=== PATIENT | female | born 1940 | race Caucasian/White ===

== ENCOUNTER 2017-09-26 14:58 | Emergency (ER) | payer OTHER ==
[~2017-09-26] VITALS: Ht 157.5 cm; Wt 65.8 kg
[~2017-09-26 14:58] MED LIST: AMLO10 PO; LEVSOD50; METO100ER PO; Norco 5-325 Ta1 EACH PO; SULAR
[2017-09-26 15:19] LABS: BASOPHILS ABSOLUTE AUTO 0.05 K/mm3 (0.00-0.23); BASOPHILS PERCENT AUTO 1 % (0-2); EOSINOPHILS ABSOLUTE AUTO 0.18 K/mm3 (0.00-0.68); EOSINOPHILS PERCENT AUTO 2 % (0-6); Hematocrit 43.8 % (33.0-51.0); Hemoglobin 14.4 g/dL (11.5-16.0); IMMATURE GRAN ABSOLUTE AUTO 0.01 K/mm3 (0.00-0.10); IMMATURE GRAN PERCENT AUTO 0 % (0-1); LYMPHOCYTES ABSOLUTE AUTO 1.83 K/mm3 (0.84-5.20); LYMPHOCYTES PERCENT AUTO 25 % (21-46); MONOCYTES ABSOLUTE AUTO 0.57 K/mm3 (0.16-1.47); MONOCYTES PERCENT AUTO 8 % (4-13); Mean Corpuscular HGB Conc 32.9 g/dL (31.5-36.5); Mean Corpuscular Volume 91 fL (80-100); Mean Platelet Volume 10.5 fL (9.1-12.4); NEUTROPHILS PERCENT AUTO 65 % (41-73); Platelet Count 179 K/mm3 (150-400); RDW Coefficient Variation 11.9 % (11.7-14.2); RDW Standard Deviation 39.9 fL (35.1-46.3); White Blood Cell Count 7.44 K/mm3 (4.00-11.30)
[2017-09-26 15:37] LABS: International Normalized Ratio 1.01; Prothrombin Time Results 10.5 Sec (9.7-11.5)
[2017-09-26 15:40] LABS: Alanine Aminotransfer (ALT/SGP 15 U/L (12-78); Albumin, Blood 3.5 g/dL (3.4-5.0); Albumin/Globulin Ratio 0.9 (0.8-1.8); Alk Phos 77 U/L (50-136); Anion Gap 9 mmol/L (6-16); Aspartate Aminotrans (AST/SGOT 17 U/L (12-37); Bilirubin, Total 0.6 mg/dL (0.1-1.0); Blood Urea Nitrogen 16 mg/dL (8-24); Bun/Creatinine Ratio 21.7 (12.0-20.0); CO2, Blood 25 mmol/L (21-32); Chloride, Blood 105 mmol/L (98-108); Creatinine, Blood 0.74 mg/dL (0.40-1.00); Ethanol (Alcohol), Blood, Med <3 mg/dL; Globulin, Blood 3.9 g/dL (2.2-4.0); Glomerular Filtration Rate >60 (60-); Glucose, Blood 100 mg/dL (70-99); Potassium, Blood 4.1 mmol/L (3.5-5.5); Sodium, Blood 139 mmol/L (136-145); Total Protein, Blood 7.4 g/dL (6.4-8.2)
== END 2017-09-26 18:01 | disposition home or self-care (01) ==
LOC: ER 14:58
PROVIDERS: Emergency Medicine
DX: S01.81XA Laceration without foreign body of other part of head, initial encounter (principal); S80.02XA Contusion of left knee, initial encounter; I10 Essential (primary) hypertension; J44.9 Chronic obstructive pulmonary disease, unspecified; Z79.899 Other long term (current) drug therapy; Z87.891 Personal history of nicotine dependence; V03.90XA Pedestrian on foot injured in collision with car, pick-up truck or van, unspecified whether traffic or nontraffic accident, initial encounter
CPT/HCPCS: 12052; 70450; 71045; 72125; 72170; 73562-LT; 80053; 83690; 85025; 85610; 85730; 86850; 86900; 86901; 96360; 99284; G0480; J7030

== ENCOUNTER → 2021-06-14 | Outpatient (CLI) | payer OTHER ==
[~2021-06-14] MED LIST changes: +ALEN70 PO; +ASPI81CH PO; +LEVSOD100 PO
== END ==
LOC: PLD 15:50 → LAB SHORT 15:50
DX: D48.5 Neoplasm of uncertain behavior of skin (principal)
CPT/HCPCS: 88305

== ENCOUNTER 2021-11-29 01:08 | Emergency (ER) | payer OTHER ==
[~2021-11-29] VITALS: Ht 157.5 cm; Wt 67.1 kg
[~2021-11-29 01:08] MED LIST changes: -ALEN70 PO; -ASPI81CH PO; -LEVSOD100 PO
[2021-11-29] MEDS ORDERED: ASPI81CH PO (02:19)
[2021-11-29] MEDS ORDERED: ALEN70 PO (02:19)
[2021-11-29] MEDS ORDERED: LEVSOD100 PO (02:20)
== END 2021-11-29 03:15 | disposition home or self-care (01) ==
LOC: ER 01:08
DX: R04.0 Epistaxis (principal); J44.9 Chronic obstructive pulmonary disease, unspecified; I10 Essential (primary) hypertension; Z79.899 Other long term (current) drug therapy
CPT/HCPCS: A9270

== ENCOUNTER 2022-10-24 08:58 | Day surgery (SDC) | payer OTHER ==
[~2022-10-24 08:58] MED LIST changes: +ALEN70 PO; +ASPI81CH PO; +LEVSOD100 PO
[2022-10-26] MEDS ORDERED: CALCIUM 500 MG1 EAC2 PO (06:52)
[2022-10-26] MEDS ORDERED: METO25ER PO (06:52)
[2022-10-26] MEDS ORDERED: GABA100 PO (06:53)
[2022-10-26] MEDS ORDERED: Flonase 0.05% N16 GM (06:54)
[2022-10-26] MEDS ORDERED: LISI20 PO (06:55)
== END 2022-10-27 23:18 | disposition home or self-care (01) ==
LOC: MOI US 08:58
DX: D05.11 Intraductal carcinoma in situ of right breast (principal)
CPT/HCPCS: 19285; 77065; A4648

== ENCOUNTER 2023-01-25 07:59 | Day surgery (SDC) | payer OTHER ==
[2023-01-25] VITALS (15 sets, daily range): BP systolic 96–155; BP diastolic 48–91
[~2023-01-25] VITALS: Ht 154.9 cm; Wt 65.4 kg
[~2023-01-25 07:59] MED LIST changes: +CALCIUM 500 MG1 EAC2 PO; +Flonase 0.05% N16 GM; +GABA100 PO; +LISI20 PO; +METO25ER PO
--- NOTE | 2023-01-25 10:20 | NUR ---
PRE-OP NOTE PT A&OX4, BREATHING RA, CALM, NO CONCERNS. Ambulatory in Day Surgery Patient up to Ambulate independently. Gait steady. Patient confirms NPO status and agrees with scheduled surgery. Pre-Op teaching done. Pt verbalizes understanding. Patient States Post-Procedure ride home has been arranged.
--- NOTE | 2023-01-25 15:20 | NUR ---
ARRIVAL PATIENT TO ROOM 217 VIA GURNEY, TRANSFERRED TO BED VIA SLIDER SHEET, TOLERATED VERY WELL. VSS ON 2L O2 VIA NC. LUNGS CLEAR/DIMINISHED. GAUZE & ABD DRESSING TO RIGHT CHEST WALL, WITH BREAST BINDER IN PLACE. ALL C/D/I AT THIS TIME. CHANG DRAIN ALSO TO R CHEST, DRAINAING SANGUINOUS FLUID TO BULB SUCTION. ORIENTED TO ROOM & CALL LIGHT, IN REACH. IV FLUIDS PER EMAR. DISCUSSED FIRE SAFETY, PATIENT VERBALIZED UNDERSTANDING & DENIES ANY SOURCE OF IGNITION PRESENT AT THIS TIME.
--- NOTE | 2023-01-25 19:03 | NUR ---
SHIFT SUMMARY NO ACUTE CHANGES SINCE ARRIVAL. POD 0 R MASTECTOMY. DRESSING & BRESAT BINDER REMAIN IN PLACE, C/D/I. PAIN MANAGED WELL PER EMAR. TOLERATING PO INTAKE WELL, DENIES N/V, VOIDING W/O DIFFICULTY. UP TO BATHROOM SBA. REPORT GIVEN TO DARLEEN CHANDLER.
[2023-01-26 02:43] VITALS: BP 147/51
--- NOTE | 2023-01-26 04:17 | NUR ---
SHIFT SUMMARY POD1 RIGHT BREAST MASTECTOMY. DRESSING AND BINDER REMAINS IN [place]. CHANG DRAIN PATENT, MODERATE SANGUINEOUS DRAINAGE NOTED T/O THE NIGHT. VSS. PT SLEPT WELL T/O THE NIGHT. PT AMBULATING AND VOIDING W/O DIFFICULTY. BLUE URINE NOTED. TOLLERATING PO INTAKE W/O N/V. PT MEDICATED FOR PAIN ONCE WITH NORCO. NO ACUTE EVENTS NOTED T/O THE NIGHT. PLAN FOR PT TO BE EVALUATED BY SURGEON THIS AM. NO IGNITION SOURCE NOTED.
[2023-01-26 07:35] VITALS: BP 151/57
[2023-01-26 10:21] VITALS: BP 142/51
--- NOTE | 2023-01-26 10:37 | NUR ---
DISCHARGE SUMMARY PATIENT IS ALERT AND ORIENTED. PATIENT HAS HAD NO ACUTE EVENTS THIS SHIFT. INCISION SITES ARE CLEAN AND DRY AND INTACT. PATIENT HAS NOT REQUIRED ANY PAIN MEDS. PATIENT HAS NOT COMPLAINED OF SOB, NAUSEA, OR VOMITTING THIS SHIFT. VITAL SIGNS REVIEWED WNL. PATIENT WAS EDUCATED ON MEDICATIONS, CHANG DRAIN CARE AND DRAINAGE. PATIENT EDUCATED ON OUTPATIENT APPOINTMENTS. PATIENT IS BEING DISCHARGED HOME WITH SON TRANSPORTING. VALDEMAR LLANES WHEELING PATIENT OUT.
== END 2023-01-26 12:00 | disposition home or self-care (01) ==
LOC: NM 07:59 → ORSCMMR 07:59 → NM 09:00 → SURS 15:27 → ORSCMMR 15:27 → SURS 01-26 12:00 → ORSCMMR 01-26 12:00
PROVIDERS: Surgery
PROC: 0HBT0ZZ Excision of Right Breast, Open Approach (ICD-10-PCS; principal; 2023-01-25 10:00)
DX: D05.11 Intraductal carcinoma in situ of right breast (principal); I12.9 Hypertensive chronic kidney disease with stage 1 through stage 4 chronic kidney disease, or unspecified chronic kidney disease; N18.9 Chronic kidney disease, unspecified; Z87.891 Personal history of nicotine dependence; J44.9 Chronic obstructive pulmonary disease, unspecified; E03.9 Hypothyroidism, unspecified; Z79.899 Other long term (current) drug therapy
CPT/HCPCS: 38792; 88307; A9270; A9520; J0690; J1100; J1885; J2371; J2405; J2704; J3010; J7120; Q9968